=== PATIENT | male | born 1980 | race American Indian/Alaskan Native ===

== ENCOUNTER 2022-06-03 02:39 | Emergency (ER) | payer BC, OTHER ==
[~2022-06-03] VITALS: Ht 182.9 cm; Wt 102.1 kg
[2022-06-03] MEDS ORDERED: CLIN300 PO (03:21)
[2022-06-03] MEDS ORDERED: PRED20 PO (03:21)
== END 2022-06-03 03:49 | disposition home or self-care (01) ==
LOC: ER 02:39
DX: K02.9 Dental caries, unspecified (principal); K04.7 Periapical abscess without sinus; F17.200 Nicotine dependence, unspecified, uncomplicated; Z88.0 Allergy status to penicillin; Z88.7 Allergy status to serum and vaccine
CPT/HCPCS: A9270; J1100